=== PATIENT | female | born 1995 | race African-American/Black ===

== ENCOUNTER 2019-02-20 10:55 | Emergency (ER) | payer OTHER ==
[~2019-02-20] VITALS: Ht 160 cm; Wt 160.1 kg
[2019-02-20] MEDS ORDERED: IRON325 PO (11:24)
[2019-02-20] MEDS ORDERED: LABETALOL HCL100 MG PO (11:24)
[2019-02-20] MEDS ORDERED: KEFLEX500 M1 PO (12:03)
[2019-02-20 13:02] VITALS: BP 158/105
== END 2019-02-20 12:48 | disposition home or self-care (01) ==
LOC: ER 10:55
DX: N61.1 Abscess of the breast and nipple (principal)